=== PATIENT | male | born 1950 | race American Indian/Alaskan Native ===

== ENCOUNTER 2017-04-12 11:59 | Emergency (ER) | payer MEDICARE ==
--- NOTE | 2017-04-12 13:07 | Emergency Department Report ---
Stated Complaint: RT FOOT PAIN Time Seen by Provider: 04/12/17 13:06 - HPI History of Present Illness: PT states someone stepped on his foot last night. - Exam Physical Exam: pt c/o R midfoot pain MSE screening note: Focused history and physical exam performed. Due to findings the following was ordered: xr ED Disposition for MSE Condition: Stable
[2017-04-12 13:08] VITALS: BP 148/93
--- NOTE | 2017-04-12 13:42 | XRay Report ---
Right foot 3 views. History: Pain after trauma. Findings: 2 small orthopedic screws are seen in the fifth metatarsal and one screw is seen in the head of the first metatarsal. 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 Mild DJD is also seen at the first DIP joint. There are no fractures or other acute findings. Impression: No acute findings. Postoperative changes and DJD are described.
[2017-04-12] MEDS ORDERED: NORCO 5/325 PO ONE (16:15)
--- NOTE | 2017-04-12 16:16 | Emergency Department Report ---
ED Lower Extremity HPI - General Chief Complaint: Extremity Injury, Lower Stated Complaint: RT FOOT PAIN Time Seen by Provider: 04/12/17 13:06 Source: patient Mode of arrival: Ambulatory Limitations: No Limitations - History of Present Illness Initial Comments: 67-year-old male past medical history diabetes presents with complaint of right foot pain. Patient states that a roommate of his accidentally fell off his chair and onto his right foot last night. Patient complaining of mid foot pain. Patient is ambulatory but complaining of pain when he steps on his right foot. No other injury sustained. MD Complaint: foot injury -: Last night Injury: Foot: Left Type of Injury: blunt Place: home Severity: moderate Severity scale (0 -10): 6 Worsens With: weight bearing Associated Symptoms: swelling, able to partially bear weight - Related Data Previous Rx's Medication Instructions Recorded Last Taken Type Acetaminophen/Codeine [Tylenol 1 tab PO Q6H PRN #10 tab 04/12/17 Unknown Rx /Codeine # 3 tab] Naproxen [Naprosyn TAB] 375 mg PO BID PRN #20 tablet 04/12/17 Unknown Rx Allergies Allergy/AdvReac Type Severity Reaction Status Date / Time Sulfa (Sulfonamide Allergy Hives Verified 04/12/17 13:03 Antibiotics) ED Review of Systems ROS: Stated complaint: RT FOOT PAIN Other details as noted in HPI Constitutional: denies: chills, fever Eyes: denies: eye pain, eye discharge, vision change ENT: denies: ear pain, throat pain Respiratory: denies: cough, shortness of breath, wheezing Cardiovascular: denies: chest pain, palpitations Endocrine: no symptoms reported Gastrointestinal: denies: abdominal pain, nausea, diarrhea Genitourinary: denies: urgency, dysuria Musculoskeletal: denies: back pain, joint swelling, arthralgia Skin: denies: rash, lesions Neurological: denies: headache, weakness, paresthesias Psychiatric: denies: anxiety, depression Hematological/Lymphatic: denies: easy bleeding, easy bruising ED Past Medical Hx - Past Medical History Hx Diabetes: Yes - Surgical History Additional Surgical History: R foot surgery - Social History Smoking Status: Current Every Day Smoker Substance Use Type: None - Medications Home Medications: Home Medications Medication Instructions Recorded Confirmed Last Taken Type Acetaminophen/Codeine [Tylenol 1 tab PO Q6H PRN #10 tab 04/12/17 Unknown Rx /Codeine # 3 tab] Naproxen [Naprosyn TAB] 375 mg PO BID PRN #20 tablet 04/12/17 Unknown Rx ED Physical Exam - General Limitations: No Limitations General appearance: alert, in no apparent distress - Head Head exam: Present: atraumatic, normocephalic - Eye Eye exam: Present: normal appearance, PERRL, EOMI - ENT ENT exam: Present: mucous membranes moist - Neck Neck exam: Present: normal inspection, full ROM - Respiratory Respiratory exam: Present: normal lung sounds bilaterally. Absent: respiratory distress - Cardiovascular Cardiovascular Exam: Present: regular rate, normal rhythm. Absent: systolic murmur, diastolic murmur, rubs, gallop - GI/Abdominal GI/Abdominal exam: Present: soft, normal bowel sounds - Rectal Rectal exam: Present: deferred - Extremities Exam Extremities exam: Present: normal inspection - Expanded Lower Extremity Exam Right Knee exam: Present: normal inspection, full ROM Lower Leg exam: Present: normal inspection, full ROM, swelling Foot/Toe exam: Present: full ROM (plantar and dorsiflexion intact), tenderness ( midfoot tenderness) Neuro vascular tendon exam: Present: no vascular compromise (distal capillary refill less than one second in all toes, dorsalis pedis pulse strong and intact) Gait: Positive: antalgic 1 - Pain on palpation here - Back Exam Back exam: Present: normal inspection - Neurological Exam Neurological exam: Present: alert, oriented X3, CN II-XII intact, abnormal gait - Psychiatric Psychiatric exam: Present: normal affect, normal mood - Skin Skin exam: Present: warm, dry, intact, normal color. Absent: rash ED Course Vital Signs 04/12/17 13:03 Temperature 98.4 F Pulse Rate 95 H Respiratory 18 Rate Blood Pressure 148/93 O2 Sat by Pulse 99 Oximetry ED Lower Extremity MDM - Medical Decision Making A/P: Right foot contusion 1-x-ray showed no acute fractures in foot, old changes secondary to foot surgery. No involvement of the ankle and clinical exam 2-patient placed in an orthopedic shoe, given crutches nonweightbearing for now 3-naproxen and Tylenol 3 when necessary 4-RICE therapy Critical care attestation.: If time is entered above; I have spent that time in minutes in the direct care of this critically ill patient, excluding procedure time. ED Disposition Clinical Impression: Foot pain, right Disposition: [id number] TO HOME OR SELFCARE Is pt being admited?: No Does the pt Need Aspirin: No Condition: Stable Instructions: Foot Contusion (ED) Prescriptions: Acetaminophen/Codeine [Tylenol /Codeine # 3 tab] 1 tab PO Q6H PRN #10 tab PRN Reason: Pain Naproxen [Naprosyn TAB] 375 mg PO BID PRN #20 tablet PRN Reason: Pain Referrals: CORY YEAGER MD [Staff Physician] - 3-5 Days [facility] [Provider Group] - 3-5 Days Forms: Work/School Release Form(ED) Time of Disposition: 17:11
== END 2017-04-12 17:12 | disposition home or self-care (01) ==
LOC: ED 11:59
DX: M79.671 Pain in right foot (principal); F17.200 Nicotine dependence, unspecified, uncomplicated; E11.9 Type 2 diabetes mellitus without complications; W07.XXXA Fall from chair, initial encounter; Y93.9 Activity, unspecified; Y92.9 Unspecified place or not applicable; Y99.9 Unspecified external cause status